=== PATIENT | female | born 1975 | race Caucasian/White ===

== ENCOUNTER 2020-03-23 07:51 | Outpatient (CLI) | payer BC, SELFPAY ==
[2020-03-23 08:22] LABS: Basophils Absolute Auto 0.1 K/mm3 (0.0-0.1); Basophils Percent Auto 0.9 % (0.2-1.2); Eosinophils Absolute Auto 0.2 K/mm3 (0-0.3); Eosinophils Percent Auto 3.7 % (0-4.4); Hematocrit 41.4 % (37.0-47.0); Hemoglobin 14.5 g/dL (12.0-15.0); Immature Granulocyte Absolute 0.02 K/mm3 (0.00-0.031); Immature Granulocyte Percent A 0.4 % (0-0.5); Lymphocytes Absolute Auto 1.65 K/mm3 (0.9-3.2); Lymphocytes Percent Auto 30.2 % (18.3-44.2); Mean Corpuscular Hemoglobin 32.7 pg (26-34); Mean Corpuscular Volume 93.2 fl (80-100); Mean Platelet Volume 9.2 fl (7.4-10.4); Monocytes Absolute Auto 0.4 K/mm3 (0.1-0.6); Monocytes Percent Auto 6.8 % (2.6-8.5); Neutrophils Absolute Auto 3.2 K/mm3 (1.3-6.7); Platelet Count Result 265 k/mm3 (150-375); Red Blood Count 4.44 M/mm3 (4.2-5.4); Red Cell Distribution Width 11.7 % (11.5-14.5); White Blood Count 5.5 K/mm3 (4.5-10.0)
[2020-03-23 08:46] LABS: Alanine Aminotransferase 25 U/L (4-35); Albumin Level 4.2 g/dL (3.5-5.1); Alkaline Phosphatase 77 U/L (38-126); Anion Gap 7 mmol/L (8-16); Aspartate Amino Transferase 29 U/L (14-36); Bilirubin,Total 0.4 mg/dL (0.2-1.3); Blood Urea Nitrogen 8 mg/dL (7-17); Calcium 8.8 mg/dL (8.4-10.2); Carbon Dioxide 25 mmol/L (22-30); Chloride 104 mmol/L (98-107); Cholesterol 175 mg/dL (0-200); Estimated Glomerular Filt Rate > 60; Glucose 88 mg/dL (65-105); HDL Direct 51 mg/dL; Potassium 4.2 mmol/L (3.4-5.0); Sodium 136 mmol/L (137-145); Triglycerides 122 mg/dL (<150)
[2020-03-23 08:50] LABS: LDL Cholesterol Direct 107 mg/dL
== END 2020-03-23 07:52 | disposition home or self-care (01) ==
PROVIDERS: PCP Internal Medicine; Visit Provider Internal Medicine
DX: Z00.00 Encounter for general adult medical examination without abnormal findings (principal)
CPT/HCPCS: 36415; 80053; 80061; 84443; 85025

== ENCOUNTER 2020-07-11 12:21 | Day surgery (SDC) | payer BC, SELFPAY ==
[2020-07-11] VITALS (12 sets, daily range): BP systolic 98–138; BP diastolic 63–89; PULSE 63–84; RESP 12–19; TEMP 36.1–36.8; O2SAT 96–100
--- NOTE | ~2020-07-11 | CT_ITS ---
EXAMINATION: CT abdomen pelvis w con DATE: 07/11/2020 13:40 INDICATION: Right lower quadrant abdominal pain TECHNIQUE: Computed tomography (CT) of the abdomen and pelvis was performed with 100 cc Omnipaque 350 intravenous contrast. The dose-length product was 655.16 mGy-cm. Automated exposure control and iter ative reconstruction technique were employed. COMPARISON: CT dated 04/12/2015 FINDINGS: Lung bases are unremarkable. Heart size normal. No significant pleural or pericardial effus ion. Calcified granuloma right lower lobe. There are cholecystectomy clips. No significant vascular a bnormality. No lymphadenopathy. The liver, spleen, pancreas, adrenal glands and right kidney are unremarkable. There are small subcen timeter hypodensities of the left kidney, most likely benign cysts. Nonobstructive bowel gas pattern. The appendix is thickened and enhancing with mild surrounding inflammation, consistent with acute ap pendicitis. No evidence for perforation or abscess. There are follicular changes in the right ovary. No abnormal pelvic masses or fluid collections. No acute osseous abnormality. IMPRESSION: 1. Acute uncomplicated appendicitis. Reviewed, dictated and finalized at location A. 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
--- NOTE | 2020-07-11 12:38 | ED.ABDPAIN ---
HPI - Abdominal Pain General Chief Complaint: Abdominal Pain Stated Complaint: Right Side ABD Pain Time Seen by Provider: 07/11/20 12:38 Source: patient Mode of arrival: ambulatory Limitations: no limitations History of Present Illness HPI narrative: Patient is a 45-year-old female who presents for evaluation of right-sided abdominal pain. Patient states that yesterday she began to feel unwell, with general malaise, nausea and vomiting. Patient states that she initially had central abdominal pain that has now migrated to her right lower quadrant, described as dull, aching in nature. Patient denies fever or chills. No vomiting today. Last oral intake at noon and did not exacerbate or change the pain. Patient had some slightly loose stools yesterday but denied any bright red blood or melena. Patient with history of laparoscopic abdominal surgery for ovarian cyst, as well as cholecystectomy. Patient denies dysuria or hematuria. Last oral intake noon today. Related Data Home Medications Medication Instructions Recorded Confirmed butalbital 50 mg-acetaminophen 325 1 cap PO Q4H PRN 07/26/19 mg-caffeine 40 mg-codeine 30 mg cap cetirizine 10 mg tablet 10 mg PO DAILY 07/26/19 cyclobenzaprine 10 mg tablet 10 mg PO .hs PRN tablet 07/26/19 norethindrone acetate 1 mg-ethinyl 1 tablet PO DAILY 07/26/19 estradiol 20 mcg tablet Allergies Allergy/AdvReac Type Severity Reaction Status Date / Time codeine Allergy Mild keeps me Verified 07/11/20 12:27 up Review of Systems Review of Systems: Narrative: CONSTITUTIONAL: Denies fever, chills, or sweats. EYES: Denies visual changes, redness, or discharge. ENT: Denies rhinorrhea, congestion, sore throat, or otalgia. CARDIOVASCULAR: Denies chest pain, palpitations, or edema. RESPIRATORY: Denies cough or dyspnea. GASTROINTESTINAL: Reports right-sided abdominal pain, nausea and vomiting has resolved, diarrhea resolved as well GENITOURINARY: Denies dysuria or hematuria. SKIN: Denies rash or itching. MUSCULOSKELETAL: Denies back pain, joint pain, or myalgia. NEUROLOGIC: Denies headache, numbness, or weakness. [facility] Past Medical History Medical History (Updated 07/11/20 @ 14:00 by Melisa Monte MD) BMI 31.0-31.9,adult Depression Low serum vitamin B12 Other allergic rhinitis Family History Family History Father Family history of elevated blood lipids Mother Patient's mother is in good health Sibling Patient's brother is in good health Social History Social History Smoking status: Former smoker Second hand tobacco smoke exposure: No Smoking end date: 07/28/99 Alcohol intake: current Substance use: never Exam Narrative: Exam Narrative: GENERAL: Awake, alert, conversant HEAD: Normocephalic, atraumatic. EYES: PERRLA and EOMI. ENT: Nares clear, no rhinorrhea or epistaxis. Mucous membranes moist. NECK: Supple. CHEST: No respiratory distress, breathing even and non labored HEART: Regular rate, sinus rhythm ABDOMEN:Non distended, focal right lower quadrant tenderness, no guarding, positive rebound, nonrigid, positive Rovsing sign EXTREMITIES: Normal range of motion. No edema. SKIN: Warm, dry, no rash. NEURO:No focal deficits. Alert and oriented x3 Course Vital Signs Vital signs: Vital Signs Temperature 36.1 C L 07/11/20 12:25 Pulse Rate 73 07/11/20 12:25 Respiratory Rate 18 07/11/20 12:25 Blood Pressure 138/87 07/11/20 12:25 Pulse Oximetry 100 07/11/20 12:25 Temperature 36.8 C 07/11/20 12:37 Pulse Rate 66 07/11/20 14:00 Respiratory Rate 16 07/11/20 14:00 Blood Pressure 98/79 L 07/11/20 14:00 Pulse Oximetry 99 07/11/20 14:00 MDM - Abdominal Pain MDM Narrative Medical decision making narrative: Patient presented for evaluation of right lower quadrant abdominal pain. At the time of assessment, ABCchris hay
[2020-07-11 13:02] LABS: Add Urine Microscopic? YES; Appearance Urine Clear (Clear); Bacteria Urine Trace /hpf; Basophils Percent Auto 0.4 % (0.2-1.2); Bilirubin Urine Negative (Negative); Blood Urine 1+ (Negative); Color Urine Straw (Yellow); Eosinophils Absolute Auto 0.1 K/mm3 (0-0.3); Eosinophils Percent Auto 1.3 % (0-4.4); Glucose Urine UA Negative (Negative); Hematocrit 40.2 % (37.0-47.0); Hemoglobin 14.3 g/dL (12.0-15.0); Immature Granulocyte Absolute 0.02 K/mm3 (0.00-0.031); Immature Granulocyte Percent A 0.3 % (0-0.5); Ketones Urine Negative (Negative); Leukocyte Esterase Ur Trace LEU/UL (Negative); Lymphocytes Absolute Auto 1.89 K/mm3 (0.9-3.2); Lymphocytes Percent Auto 26.4 % (18.3-44.2); Mean Corpuscular HGB Conc 35.6 g/dl (32-36); Mean Corpuscular Hemoglobin 32.7 pg (26-34); Mean Platelet Volume 9.2 fl (7.4-10.4); Monocytes Absolute Auto 0.4 K/mm3 (0.1-0.6); Monocytes Percent Auto 5.6 % (2.6-8.5); Mucus Urine Rare /lpf; Neutrophils Absolute Auto 4.7 K/mm3 (1.3-6.7); Nitrate Urine Negative (Negative); Platelet Count Result 276 k/mm3 (150-375); Protein Urine Negative (Negative); RBC Urine 0-2 /hpf (0-2); Red Blood Count 4.37 M/mm3 (4.2-5.4); Red Cell Distribution Width 11.5 % (11.5-14.5); Squamous Epithelial Cell Urine Many /hpf (Few); Urobilinogen Urine Negative mg/dL (<2.0); WBC Urine 0-3 /hpf; White Blood Count 7.2 K/mm3 (4.5-10.0)
[2020-07-11 13:05] LABS: Specific Grav Ur 1.004 (1.001-1.035)
[2020-07-11 13:09] LABS: Alanine Aminotransferase 30 U/L (4-35); Albumin Level 4.2 g/dL (3.5-5.1); Alkaline Phosphatase 69 U/L (38-126); Anion Gap 6 mmol/L (8-16); Aspartate Amino Transferase 29 U/L (14-36); Bilirubin,Total 0.3 mg/dL (0.2-1.3); Blood Urea Nitrogen 5 mg/dL (7-17); Calcium 8.8 mg/dL (8.4-10.2); Carbon Dioxide 27 mmol/L (22-30); Chloride 103 mmol/L (98-107); Estimated CRCL calculation 84 ml/min; Estimated Glomerular Filt Rate > 60; Glucose 124 mg/dL (65-105); Lipase 99 U/L (23-300); Potassium 3.7 mmol/L (3.4-5.0); Sodium 136 mmol/L (137-145)
--- NOTE | 2020-07-11 14:50 | PC.NURSE ---
DR. QUARLES AT BEDSIDE AT THIS TIME.
--- NOTE | 2020-07-11 15:12 | PM.IMHP ---
H&P: HPI History of Present Illness Date/Time: 07/11/20 15:12 Cheif Complaint: Right lower quadrant abdominal pain Narrative: Teagan Oneill is a 45 year old caucasion female patient who presents for evaluation of right-sided abdominal pain. Patient states that yesterday she began to feel unwell noticing the mid abdominal pain when she woke up in the morning, with general malaise, nausea and vomiting. Patient states that she initially had central abdominal pain that has now migrated to her right lower quadrant. The pain is now described as dull, aching in nature. Patient denies fever or chills. No vomiting today. She did have both thumb Ng and some diarrhea during the daytime yesterday. She was able to eat some supper last night before she went to bed. Last oral intake at noon and did not exacerbate or change the pain. Patient had some slightly loose stools yesterday but denied any bright red blood or melena. Patient with history of laparoscopic abdominal surgery for ovarian cysts, as well as cholecystectomy. Patient denies dysuria or hematuria. Last oral intake noon today(she had a rope wrist be sandwich with some ice tea). Review of Systems Constitutional: Constitutional: Reports no additional constitutional complaints, Reports fatigue and Denies malaise Eyes: Eyes: Denies change in vision and Denies loss of vision ENT: Reports Normal hearing present, Denies change in voice, Denies dizziness, Denies hoarseness and Denies sore throat Cardiovascular: Cardiovascular: Denies chest pain, Denies leg edema and Denies dyspnea Respiratory: Respiratory: Denies cough, Denies dyspnea and Denies wheezing Gastrointestinal: Gastrointestinal: Denies hematochezia, Denies change in bowel habits and Denies heartburn Comments: History of previous laparoscopic cholecystectomy about 8 years ago for gallstones. Also at age 21 had a laparoscopy with some ovarian surgery due to recurrent cysts Genitourinary: Genitourinary: Denies urinary frequency and Denies urinary incontinence Comments: Occasional urinary tract infections. However, today or recently no frequency of urination or burning with urination. Neurologic: Reports Normal hearing present, Denies confusion, Denies dizziness, Denies loss of vision, Denies memory loss and Denies seizure-like activity Psychiatric: Psychiatric: Denies confusion, Reports depression (On medication) and Denies memory loss Comments: History of mild depression taking some antidepressant regularly. Endocrine: Endocrine: Denies cold intolerance and Reports fatigue Hematologic/Lymphatic: Hematologic/Lymphatic: Denies easy bleeding and Denies easy bruising Allergic/Immunologic: Allergic/Immunologic: Denies wheezing PMFSH Past Medical History Medical History BMI 31.0-31.9,adult Depression Low serum vitamin B12 Other allergic rhinitis Family History Family History Father Family history of elevated blood lipids Mother Patient's mother is in good health Sibling Patient's brother is in good health Social History Social History Smoking status: Former smoker Second hand tobacco smoke exposure: No Smoking end date: 07/28/99 Alcohol intake: current Substance use: never Comments Alcohol intake is fairly minimal about half a beer per week. Meds Home Medications and Allergies Home Medications Medication Instructions Recorded Confirmed Type butalbital 50 mg-acetaminophen 325 1 cap PO Q4H PRN 07/26/19 History mg-caffeine 40 mg-codeine 30 mg cap cetirizine 10 mg tablet 10 mg PO DAILY 07/26/19 History cyclobenzaprine 10 mg tablet 10 mg PO .hs PRN tablet 07/26/19 History norethindrone acetate 1 mg-ethinyl 1 tablet PO DAILY 07/26/19 History estradiol 20 mcg tablet azelastine 0.15 % (205.5 mcg) 2 spray NASAL BID PRN #30 ml
[2020-07-11] MEDS: SODIUM CHLORIDE 0.9% IV 1,000 ML 150 ML IV CONT (15:37)
[2020-07-11] MEDS: LACTATED RINGERS 1,000 ML 30 ML IV CONT ×2 (16:50→20:00)
--- NOTE | 2020-07-11 17:24 | WPDANESEPPF ---
Anes - Initial Pre Proc Eval Procedure: Operation Date: 07/11/20 17:30 Proposed Procedures p Laparoscopic Appendectomy,Possible Open - Stephen Mari MD Date/Time: 07/11/20 17:24 Surgeon: Stephen Mari MD Pre Op Diagnosis: Right Side ABD Pain Patient Data Age: 45 Gender: F Height: 1.65 m Weight: 86.1 kg Last Vital Signs Temp 36.4 C 07/11/20 16:49 Pulse 77 07/11/20 16:49 Resp 16 07/11/20 16:49 BP 111/69 07/11/20 16:49 Pulse Ox 96 07/11/20 16:49 Allergies Allergy/AdvReac Type Severity Reaction Status Date / Time codeine Allergy Mild keeps me Verified 07/11/20 12:27 up Home Medications Medication Instructions Recorded Confirmed Type butalbital 50 mg-acetaminophen 325 1 cap PO Q4H PRN 07/26/19 History mg-caffeine 40 mg-codeine 30 mg cap cetirizine 10 mg tablet 10 mg PO DAILY 07/26/19 History cyclobenzaprine 10 mg tablet 10 mg PO .hs PRN tablet 07/26/19 History norethindrone acetate 1 mg-ethinyl 1 tablet PO DAILY 07/26/19 History estradiol 20 mcg tablet azelastine 0.15 % (205.5 mcg) 2 spray NASAL BID PRN #30 ml 10/27/19 Rx nasal spray citalopram 10 mg tablet 10 mg PO DAILY #90 tablet 05/30/20 Rx Laboratory Tests 07/11/20 07/11/20 07/11/20 12:47 12:47 12:47 WBC 7.2 K/mm3 K/mm3 (4.5-10.0) RBC 4.37 M/mm3 M/mm3 (4.2-5.4) Hgb 14.3 g/dL g/dL (12.0-15.0) Hct 40.2 % % (37.0-47.0) MCV 92.0 fl fl (80-100) MCH 32.7 pg pg (26-34) MCHC 35.6 g/dl g/dl (32-36) RDW 11.5 % % (11.5-14.5) Plt Count 276 k/mm3 k/mm3 (150-375) MPV 9.2 fl fl (7.4-10.4) Immature Gran % (Auto) 0.3 % % (0-0.5) Neut % (Auto) 66.0 % % (45.5-73.1) Lymph % (Auto) 26.4 % % (18.3-44.2) Upton % (Auto) 5.6 % % (2.6-8.5) Eos % (Auto) 1.3 % % (0-4.4) Baso % (Auto) 0.4 % % (0.2-1.2) Lymph # (Auto) 1.89 K/mm3 K/mm3 (0.9-3.2) Upton # (Auto) 0.4 K/mm3 K/mm3 (0.1-0.6) Eos # (Auto) 0.1 K/mm3 K/mm3 (0-0.3) Baso # (Auto) 0.0 K/mm3 K/mm3 (0.0-0.1) Abs Immat Gran (auto) 0.02 K/mm3 K/mm3 (0.00-0.031) Absolute Neuts (auto) 4.7 K/mm3 K/mm3 (1.3-6.7) Absolute Nucleated RBC 0.0 K/mm3 K/mm3 (0.0-0.012) Nucleated RBC % 0.0 % % (0.0-0.2) Sodium 136 mmol/L L mmol/L (137-145) Potassium 3.7 mmol/L mmol/L (3.4-5.0) Chloride 103 mmol/L mmol/L (98-107) Carbon Dioxide 27 mmol/L mmol/L (22-30) Anion Gap 6 mmol/L L mmol/L (8-16) BUN 5 mg/dL L mg/dL (7-17) Creatinine 0.80 mg/dL mg/dL (0.7-1.0) Estim Creat Clear Calc 84 ml/min ml/min Estimated GFR > 60 (59 - ) Glucose 124 mg/dL H mg/dL (65-105) Calcium 8.8 mg/dL mg/dL (8.4-10.2) Total Bilirubin 0.3 mg/dL mg/dL (0.2-1.3) AST 29 U/L U/L (14-36) ALT 30 U/L U/L (4-35) Alkaline Phosphatase 69 U/L U/L (38-126) Total Protein 7.0 g/dL g/dL (6.3-8.2) Albumin 4.2 g/dL g/dL (3.5-5.1) Lipase 99 U/L U/L (23-300) Urine Color Straw (Yellow) Urine Appearance Clear (Clear) Urine pH 6.0 (5.0-9.0) Ur Specific Neville 1.004 (1.001-1.035) Urine Protein Negative mg/dL mg/dL (Negative) Urine Glucose (UA) Negative mg/dL mg/dL (Negative) Urine Ketones Negative mg/dL mg/dL (Negative) Ur Blood (Man) 1+ H (Negative) Urine Nitrate Negative (Negative) Urine Bilirubin Negative (Negative) Urine Urobilinogen Negative mg/dL mg/dL (<2.0) Leukocyte Esterase Rfl Trace DAVIS/UL H DAVIS/UL (Negative) Urine RBC 0-2 /hpf /hpf (0-2) Urine WBC 0-3 /hpf /hpf Ur Sq
--- NOTE | 2020-07-11 17:59 | WPDHPUPDATE1 ---
History and Physical Update Update Date/Time: 07/11/20 17:59 History and Physical has been reviewed, including an updated exam of the patient. There are NO changes in the patient's condition. Risks, benefits, and alternatives have been discussed and questions answered. Patient agrees to proceed with procedure.
[2020-07-11] MEDS: BUPIVACAINE/EPINEPHRINE 0.25% 10 ML VIAL 30 ML INFILTRATE (19:20)
--- NOTE | 2020-07-11 20:09 | PM.PROC ---
Procedure Note - Detailed Date of procedure: 07/11/20 Pre-op diagnosis: Right Side ABD Pain Acute uncomplicated appendicitis Post-op diagnosis: same Procedure performed: Laparoscopic Appendectomy Description of procedure: The patient was seen again in the Holding Room. The risks, benefits, complications, treatment options, and expected outcomes were discussed with the patient and/or family. The possibilities of reaction to medication, pulmonary aspiration, perforation of viscus, bleeding, recurrent infection, finding a normal appendix, the need for additional procedures, failure to diagnose a condition, and creating a complication requiring transfusion or operation were discussed. There was concurrence with the proposed plan and informed consent was obtained. The site of surgery was properly noted/marked. The patient was taken to Operating Room, and a time out was preformed which identified this as the proper patient, and the procedure verified as laparoscopic appendectomy, possible open. The patient was placed in the supine position and general anesthesia was induced, along with placement of orogastric tube, SCD hose, and a Jackson catheter. The abdomen was prepped and draped in a sterile fashion. Because the patient had had previous surgeries the Zapata cannula technique was utilized. To do this I made a incision in the umbilical area and carried this down to the midline fascia. Under direct vision the midline fascia was incised and the peritoneum entered under direct vision after placing 2 sutures of 0 Vicryl in the fascia on either side of midline. The Zapata cannula was then slid into place into the peritoneum under direct vision. The pneumoperitoneum was then established to steady pressure of 15 mm Hg. A 5 mm laparoscopic port was placed through a transverse suprapubic incision. An additional 5 mm cannula was then placed in the left lower quadrant of the abdomen at a level half way between the umbilicus and pubic symphysis under direct vision. A careful evaluation of the entire abdomen was carried out. The patient was placed in Trendelenburg and left lateral decubitus position. The small intestines were retracted in the cephalad and left lateral direction away from the pelvis and right lower quadrant. The patient was found to have an enlarged and mildly inflamed appendix that was extending into the right side of the adomen with a veil of adhesions across it'sproximal 1/2. There was no evidence of perforation. The appendix was carefully dissected. Once it was free a 45 mm ethicon endogastroentestinal stapler with a vascular load was placed across the mesoappendix. This was fired and hemostasis was checked along the staple line and appeared to be adequate. For this patient, this divided the entire mesoappendix and we were able to proceed immediately to stapling off the appendix at it's junction with the cecum. The appendix was then divided at its base using the same 45 mm stapler with a 3.5 mm bowel wall load. Minimal appendiceal stump was left in place. There was no evidence of bleeding, leakage, or complication after division of the appendix at its junction with the cecum.. The appendix was then placed in an endobag which had been brought through the 12 mm umbilical port site. The appendix and the bag were then extracted through this larger port site in the suprapubic position. The umbilical port site was closed using a #1 Polysorb suture passed with a Adrian-Le cone and needle suture passer and then this was re-inforced at a more superficially with a figure of 8 O Vicryl using a standard needle lima externally through the incision at the level of the fascia. The 2 stay sutures that were placed at the beginning of the procedure at the umbilical level were also tied together to help approximate the fascia under the umbilical skin. The trocar site skin wounds were then closed using 4-0 undyed Monocryl and surgical glue. Instrument, sponge, and needle
[2020-07-11] MEDS: HYDROcodone/acetaminophen (*CRX) 5-325 MG TABLET 1 TAB PO (20:55)
--- NOTE | 2020-07-11 21:05 | SUR.PHASEII ---
Walked to bathroom without issues. Voided also without difficulty.
== END 2020-07-11 21:34 | disposition home or self-care (01) ==
LOC: ANHED 15:08 → ANHSURGERY 15:59
PROVIDERS: Emergency Provider Emergency Medicine; PCP Internal Medicine; Visit Provider Surgery
PROC: 0DTJ4ZZ Resection of Appendix, Percutaneous Endoscopic Approach (ICD-10-PCS; CPT 44970; principal; 2020-07-11 17:30)
DX: K35.32 Acute appendicitis with perforation, localized peritonitis, and gangrene, without abscess (principal); F32.9 Major depressive disorder, single episode, unspecified; J30.89 Other allergic rhinitis; E53.8 Deficiency of other specified B group vitamins; Z87.891 Personal history of nicotine dependence
CPT/HCPCS: 44970; 36415; 74177; 80053; 81001; 81025; 83690; 85025; 88304; 96365; 96366; 99285; A9270; J0330; J1100; J2001; J2250; J2405; J2543; J2704; J2710; J3010; J7030; J7120; Q9967

== ENCOUNTER 2020-08-19 06:45 | Outpatient (NON) | payer BC, SELFPAY ==
[2020-08-20 17:16] LABS: SARS-CoV-2 RNA PCR Negative
== END 2020-08-19 06:46 ==
LOC: ANHCOVIDDT 06:45
PROVIDERS: PCP Internal Medicine; Visit Provider Physician Assistant
DX: R68.89 Other general symptoms and signs (principal); Z20.822 Contact with and (suspected) exposure to COVID-19
CPT/HCPCS: C9803; U0003; U0005

== ENCOUNTER 2020-12-28 14:50 | Outpatient (CLI) | payer BC, SELFPAY ==
--- NOTE | ~2020-12-28 | US_ITS ---
US axilla LT 12/28/2020 15:10 Indication: Palpable left axillary abnormality Procedure: High-resolution ultrasound of the left axilla Comparison: No prior studies for comparison. Findings: There are normal left axillary lymph nodes measuring up to 1 cm maximum dimension which ret ain normal fatty hilum. No suspicious masses are identified in the left axilla to suggest malignancy. Impression: 1: Benign-appearing left axillary lymph nodes. BI-RADS CATEGORY 2 - BENIGN FINDINGS Reviewed, dictated and finalized at location A. Impression: 1: Benign-appearing left axillary lymph nodes. BI-RADS CATEGORY 2 - BENIGN FINDINGS
== END 2020-12-28 14:51 | disposition home or self-care (01) ==
LOC: ANHIMG 14:51
PROVIDERS: PCP Internal Medicine; Visit Provider Internal Medicine
DX: M79.89 Other specified soft tissue disorders (principal)
CPT/HCPCS: 76882

== ENCOUNTER → 2021-02-12 13:17 | Outpatient (CLI) | payer BC, SELFPAY ==
--- NOTE | ~2021-02-12 | MM_ITS ---
EXAMINATION: MM screening jesus BI w dottie HISTORY: Screening TECHNIQUE: Craniocaudal and mediolateral oblique 3-D tomosynthesis images were obtained and synthetic 2-D images were generated. CAD analysis was submitted and interpreted. COMPARISON: Comparison to multiple prior studies sequentially, with oldest reviewed study dated 02/2017. BREAST PARENCHYMAL COMPOSITION: The breasts are heterogeneously dense, which may obscure small masses . FINDINGS: There is no evidence of suspicious mass, calcification, or architectural distortion to sugg est malignancy in either breast. There has been no suspicious interval change. IMPRESSION: 1. No mammographic evidence of malignancy. 2. Recommend routine screening mammography in one year. BI-RADS Category 1: Negative Reviewed, dictated and finalized at location A.
== END ==
PROVIDERS: Visit Provider Obstetrics & Gynecology
DX: Z12.31 Encounter for screening mammogram for malignant neoplasm of breast (principal)
CPT/HCPCS: 77063; 77067

== ENCOUNTER 2021-07-11 07:18 | Outpatient (CLI) | payer BC, SELFPAY ==
[2021-07-11 07:34] LABS: Basophils Absolute Auto 0.1 K/mm3 (0.0-0.1); Basophils Percent Auto 1.1 % (0.2-1.2); Eosinophils Absolute Auto 0.2 K/mm3 (0-0.3); Eosinophils Percent Auto 3.3 % (0-4.4); Hematocrit 43.2 % (37.0-47.0); Hemoglobin 14.9 g/dL (12.0-15.0); Immature Granulocyte Absolute 0.01 K/mm3 (0.00-0.031); Immature Granulocyte Percent A 0.2 % (0-0.5); Lymphocytes Absolute Auto 1.93 K/mm3 (0.9-3.2); Lymphocytes Percent Auto 30.4 % (18.3-44.2); Mean Corpuscular HGB Conc 34.5 g/dl (32-36); Mean Corpuscular Hemoglobin 33.3 pg (26-34); Mean Corpuscular Volume 96.4 fl (80-100); Mean Platelet Volume 8.7 fl (7.4-10.4); Monocytes Absolute Auto 0.6 K/mm3 (0.1-0.6); Monocytes Percent Auto 9.1 % (2.6-8.5); Neutrophils Absolute Auto 3.5 K/mm3 (1.3-6.7); Neutrophils Percent Auto 55.9 % (45.5-73.1); Platelet Count Result 266 k/mm3 (150-375); Red Blood Count 4.48 M/mm3 (4.2-5.4); Red Cell Distribution Width 11.8 % (11.5-14.5); White Blood Count 6.3 K/mm3 (4.5-10.0)
[2021-07-11 07:46] LABS: Hemoglobin A1C 5.2 % (<5.7)
[2021-07-11 08:37] LABS: Alanine Aminotransferase 27 U/L (4-35); Albumin Level 4.3 g/dL (3.5-5.1); Alkaline Phosphatase 93 U/L (38-126); Anion Gap 7 mmol/L (8-16); Aspartate Amino Transferase 29 U/L (14-36); Bilirubin,Total 0.5 mg/dL (0.2-1.3); Blood Urea Nitrogen 7 mg/dL (7-17); Calcium 8.7 mg/dL (8.4-10.2); Carbon Dioxide 27 mmol/L (22-30); Chloride 104 mmol/L (98-107); Cholesterol 178 mg/dL (0-200); Estimated Glomerular Filt Rate > 60; Glucose 94 mg/dL (65-110); HDL Direct 53 mg/dL; Potassium 4.5 mmol/L (3.4-5.0); Sodium 138 mmol/L (137-145); Triglycerides 118 mg/dL (<150)
[2021-07-11 08:49] LABS: LDL Cholesterol Direct 96 mg/dL
[2021-07-14 11:19] LABS: Folic Acid 18.5 ng/mL (2.76->20)
== END 2021-07-11 07:19 | disposition home or self-care (01) ==
PROVIDERS: PCP Internal Medicine; Visit Provider Internal Medicine
DX: Z00.00 Encounter for general adult medical examination without abnormal findings (principal)
CPT/HCPCS: 36415; 80053; 80061; 82607; 82746; 83036; 84443; 85025

== ENCOUNTER 2022-01-06 12:17 | Emergency (ER) | payer BC, SELFPAY ==
[2022-01-06 12:31] VITALS: BP 102/63; PULSE 72; RESP 18; TEMP 37; O2SAT 98
--- NOTE | 2022-01-06 12:37 | ED.GENADULT ---
HPI - General Adult General Chief complaint: Wound/Laceration Stated complaint: laceration lt hand Source: patient Mode of arrival: ambulatory Limitations: no limitations History of Present Illness HPI narrative: Patient presents for evaluation of laceration to left hand. 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 She has some mild pain in the affected area. No loss of ROM. She describes the pain as pressure and tingling . She is left hand dominant. She is not diabetic. She does not smoke. Date of last tetanus about eight years ago. No additional complaints or concerns. Related Data Allergies Allergy/AdvReac Type Severity Reaction Status Date / Time codeine Allergy Mild keeps me Verified 01/06/22 12:38 up Review of Systems Review of Systems: CONSTITUTIONAL: Denies fever, chills, or sweats. EYES: Denies visual changes, redness, or discharge. ENT: Denies rhinorrhea, congestion, sore throat, or otalgia. CARDIOVASCULAR: Denies chest pain, palpitations, or edema. RESPIRATORY: Denies cough or dyspnea. GASTROINTESTINAL: Denies abdominal pain, nausea, vomiting, or diarrhea. GENITOURINARY: Denies dysuria or hematuria. SKIN: Reports laceration to left hand MUSCULOSKELETAL: Reports left hand pain. Denies back pain, joint pain NEUROLOGIC: Reports tingling near left hand laceration site. Denies headache, numbness, dizziness, or weakness. PSYCHIATRIC: Denies anxiety or depression. [facility] Past Medical History Medical History Abnormal Pap smear of cervix 08/07/10 ascus, neg hpv; 07/07/2009 ASCUS;06/21/08 LGSIL +HPV; 03/28/2006 ASCUS + HPV Anxiety BMI 31.0-31.9,adult Chlamydia Depression (Unknown) Encounter for IUD insertion 06/04/05 Mirena insertion Encounter for IUD removal 07/07/07 Mirena removal--irregular bleeding GERD (gastroesophageal reflux disease) HSV-1 (herpes simplex virus 1) infection Low serum vitamin B12 Migraine Other allergic rhinitis (Unknown) Screening mammogram, encounter for Surgical History Surgical History History of cholecystectomy 2010 History of colposcopy with cervical biopsy 05/06/06 EMB--benign 07/14/08 insufficient tissue volume History of endoscopy 2014 endoscopy of stomach--GERD History of laparoscopic appendectomy 07/11/2020 History of laparoscopy 03/03/02 dx lscope, adhesiolysis History of ovarian cystectomy 1995 ovarian cyst removed History of tonsillectomy 1994 Family History Family History Father Family history of elevated blood lipids Hypertension Mother Patient's mother is in good health Sibling Patient's brother is in good health Social History Social History Smoking status: Former smoker Second hand tobacco smoke exposure: No Smoking end date: 07/28/99 Alcohol intake: former Alcohol use details: rarely Substance use: never Substance use type: does not use Additional living arrangements comments: spouse Gender identity (if verbalized by the patient): Female Sexual Orientation (if Verbalized by the Patient): Straight or Heterosexual Exam Narrative: GENERAL: Well-appearing, well-nourished, and in no acute distress. HEAD: Normocephalic, atraumatic. EYES: PERRLA and EOMI. ENT: Nares clear, no rhinorrhea or epistaxis. Mucous membranes moist. Oropharynx without tonsillar hypertrophy exudate or other lesions. Bilateral TMs pearly mccoy nonbulging NECK: Supple. No adenopathy or masses. No carotid bruits or JVD CHEST: Clear to auscultation. No respiratory distress. No wheezes rales or rhonchi HEART: Regular rate and rhythm. No murmur heard. Normal peripheral pulses. ABDOMEN: Soft, nontender, nondistended, normal active bowel sounds. EXTREMITIES: Normal range of britney
[2022-01-06] MEDS: TETANUS,DIPHTHERIA,AC PERTUSSIS ADULT (0.5 ML) BOOSTRIX IM (13:05)
== END 2022-01-06 13:08 | disposition home or self-care (01) ==
PROVIDERS: Emergency Provider Nurse Practitioner; PCP Internal Medicine
DX: S61.412A Laceration without foreign body of left hand, initial encounter (principal); W26.0XXA Contact with knife, initial encounter; Z23 Encounter for immunization; Z87.891 Personal history of nicotine dependence; K21.9 Gastro-esophageal reflux disease without esophagitis
CPT/HCPCS: 12001; 90471; 90715; 99212; G0463

== ENCOUNTER → 2022-05-29 13:32 | Outpatient (CLI) | payer BC, SELFPAY ==
--- NOTE | ~2022-05-29 | MM_ITS ---
EXAMINATION: MM screening jesus BI w dottie HISTORY: Screening TECHNIQUE: Craniocaudal and mediolateral oblique 3-D tomosynthesis images were obtained and synthetic 2-D images were generated. CAD analysis was submitted and interpreted. COMPARISON: Comparison to multiple prior studies sequentially, with oldest reviewed study dated 02/2017. BREAST PARENCHYMAL COMPOSITION: The breasts are heterogeneously dense, which may obscure small masses . FINDINGS: There is no evidence of suspicious mass, calcification, or architectural distortion to sugg est malignancy in either breast. There has been no suspicious interval change. IMPRESSION: 1. No mammographic evidence of malignancy. 2. Recommend routine screening mammography in one year. BI-RADS Category 1: Negative Reviewed, dictated and finalized at location A.
== END ==
PROVIDERS: PCP Internal Medicine; Visit Provider Obstetrics & Gynecology
DX: Z12.31 Encounter for screening mammogram for malignant neoplasm of breast (principal)
CPT/HCPCS: 77063; 77067

== ENCOUNTER 2022-08-16 01:54 | Day surgery (SDC) | payer BC, SELFPAY ==
[2022-08-05 11:54] VITALS: BMI 33.3
[2022-08-16 09:39] VITALS: BP 114/63; PULSE 68; RESP 18; TEMP 36.2; O2SAT 97
[2022-08-16] MEDS: LACTATED RINGERS 1,000 ML 150 ML IV CONT (09:54)
--- NOTE | 2022-08-16 10:23 | WPDANESEPPF ---
Anes - Initial Pre Proc Eval Procedure: Operation Date: 08/16/22 11:00 Proposed Procedures p Screening Colonoscopy - Chuy Gilliland MD Date/Time: 08/16/22 10:23 Surgeon: Chuy Gilliland MD Pre Op Diagnosis: neoplasm screening Patient Data Age: 47 Gender: F Height: 1.65 m Weight: 95.2 kg Last Vital Signs Temp 97.2 F L 08/16/22 09:39 Pulse 68 08/16/22 09:39 Resp 18 08/16/22 09:39 BP 114/63 08/16/22 09:39 Pulse Ox 97 08/16/22 09:39 O2 Del Method Room Air 08/16/22 09:39 Allergies Allergy/AdvReac Type Severity Reaction Status Date / Time codeine Allergy Mild keeps me Verified 08/16/22 09:38 up Home Medications Medication Instructions Recorded Confirmed Type norethindrone acetate 1 mg-ethinyl 1 tablet PO DAILY #63 tabs 01/15/22 08/05/22 Rx estradiol 20 mcg tablet (Junel) citalopram 10 mg tablet (Celexa) 10 mg PO DAILY #90 tabs 05/09/22 08/05/22 Rx Patient hx anesthesia problems: none Family hx anesthesia problems: none Results Review: All pre-operative results and documents have been reviewed as part of the pre-operative evaluation. [facility] Past Medical History Medical History Abnormal Pap smear of cervix 08/07/10 ascus, neg hpv; 07/07/2009 ASCUS;06/21/08 LGSIL +HPV; 03/28/2006 ASCUS + HPV Anxiety BMI 31.0-31.9,adult Chlamydia Depression (Unknown) Encounter for IUD insertion 06/04/05 Mirena insertion Encounter for IUD removal 07/07/07 Mirena removal--irregular bleeding GERD (gastroesophageal reflux disease) HSV-1 (herpes simplex virus 1) infection Low serum vitamin B12 Migraine Other allergic rhinitis (Unknown) Screening mammogram, encounter for Surgical History Surgical History History of cholecystectomy 2010 History of colposcopy with cervical biopsy 05/06/06 EMB--benign 07/14/08 insufficient tissue volume History of endoscopy 2015 endoscopy of stomach--GERD History of laparoscopic appendectomy 07/11/2020 History of laparoscopy 03/03/02 dx lscope, adhesiolysis History of ovarian cystectomy 1995 ovarian cyst removed History of tonsillectomy 1994 Family History Family History Father Family history of elevated blood lipids Hypertension Mother Patient's mother is in good health Sibling Patient's brother is in good health Social History Social History (Updated 07/23/22 @ 13:29 by James Gallego MA) Smoking packs per day: 0.25 Smoking cigarettes per day: 5.0 Years smoked: 3 Smoking pack-years: 0.75 Smoking status: Former smoker Second hand tobacco smoke exposure: No Smoking end date: 07/28/99 Alcohol intake: never Alcohol use details: rarely Substance use: never Substance use type: does not use Lack of Transportation: No Lack of Food: Never True Current Housing: I Have Housing Concerned About Future Housing: No Difficulty Paying Gas/Electric Bills: No Difficulty Paying for Meds: No Currently Unemployed: No Education: Bachelor's Degree Difficulty w/ Childcare or Family Care: No Living arrangements: with family Additional living arrangements comments: spouse Occupation/Education: unemployed Gender identity (if verbalized by the patient): Female Sexual Orientation (if Verbalized by the Patient): Straight or Heterosexual Spiritual care concerns: No Anes - Eval Final PreProcedure Day of Procedure 08/16/22 10:23 Patient weight: obese Heart: regular rate and rhythm Lungs: clear to auscultation Airway: Mallampati scale Neurological: alert and oriented Last oral intake: >/= 8 hours ASA classification: II Emergent: no Anesthetic plan: proceed Anesthesia type and monitoring: general GIVS and standard monitoring Results Review: All pre-operative results and documents have been reviewed as part of the pre-operativ
--- NOTE | 2022-08-16 10:23 | PM.HPGS ---
History of Present Illness History of Present Illness Consent: Risks, benefits, and alternatives have been discussed and questions answered. Patient agrees to proceed with procedure. Chief complaint: neoplasm screening Narrative: Teagan Oneill is a 47 year old female presents for screening colonoscopy. Patient's current weight appetite and bowel movements are normal. Patient denies abdominal pain. She has had no bleeding. Family history noncontributory. Review of Systems Review of Systems: Review of systems noncontributory. [facility] Past Medical History Medical History Abnormal Pap smear of cervix 08/07/10 ascus, neg hpv; 07/07/2009 ASCUS;06/21/08 LGSIL +HPV; 03/28/2006 ASCUS + HPV Anxiety BMI 31.0-31.9,adult Chlamydia Depression (Unknown) Encounter for IUD insertion 06/04/05 Mirena insertion Encounter for IUD removal 07/07/07 Mirena removal--irregular bleeding GERD (gastroesophageal reflux disease) HSV-1 (herpes simplex virus 1) infection Low serum vitamin B12 Migraine Other allergic rhinitis (Unknown) Screening mammogram, encounter for Surgical History Surgical History History of cholecystectomy 2010 History of colposcopy with cervical biopsy 05/06/06 EMB--benign 07/14/08 insufficient tissue volume History of endoscopy 2014 endoscopy of stomach--GERD History of laparoscopic appendectomy 07/11/2020 History of laparoscopy 03/03/02 dx lscope, adhesiolysis History of ovarian cystectomy 1995 ovarian cyst removed History of tonsillectomy 1994 Family History Family History Father Family history of elevated blood lipids Hypertension Mother Patient's mother is in good health Sibling Patient's brother is in good health Social History Social History (Updated 07/23/22 @ 13:29 by James Gallego MA) Smoking packs per day: 0.25 Smoking cigarettes per day: 5.0 Years smoked: 3 Smoking pack-years: 0.75 Smoking status: Former smoker Second hand tobacco smoke exposure: No Smoking end date: 07/28/99 Alcohol intake: never Alcohol use details: rarely Substance use: never Substance use type: does not use Lack of Transportation: No Lack of Food: Never True Current Housing: I Have Housing Concerned About Future Housing: No Difficulty Paying Gas/Electric Bills: No Difficulty Paying for Meds: No Currently Unemployed: No Education: Bachelor's Degree Difficulty w/ Childcare or Family Care: No Living arrangements: with family Additional living arrangements comments: spouse Occupation/Education: unemployed Gender identity (if verbalized by the patient): Female Sexual Orientation (if Verbalized by the Patient): Straight or Heterosexual Spiritual care concerns: No Meds Home Medications and Allergies Home Medications Medication Instructions Recorded Confirmed Type norethindrone acetate 1 mg-ethinyl 1 tablet PO DAILY #63 tabs 01/15/22 08/05/22 Rx estradiol 20 mcg tablet (Junel) citalopram 10 mg tablet (Celexa) 10 mg PO DAILY #90 tabs 05/09/22 08/05/22 Rx Allergies Allergy/AdvReac Type Severity Reaction Status Date / Time codeine Allergy Mild keeps me Verified 08/16/22 09:38 up Vital Signs Vital Signs - 24 hr 08/16/22 09:39 Temperature 97.2 F L Pulse Rate 68 Respiratory Rate 18 Blood Pressure 114/63 Pulse Oximetry 97 Oxygen Delivery Room Air Exam Narrative: Physical exam reveals patient be alert. Vital signs stable. HEENT exam unremarkable. Patient is anicteric. Lungs are clear to auscultation and percussion. Heart is without murmur or extra sounds. Abdomen bowel sounds present soft nontender with no organomegaly. Digital external rectal exam is normal. Assessment and Plan Assessment and plan (1) Encounter for screening colonoscopy: Code(s
[2022-08-16 10:46] VITALS: BP 90/53; PULSE 75; RESP 30; O2SAT 95
[2022-08-16 10:56] VITALS: BP 97/63; PULSE 76; RESP 17; O2SAT 98
[2022-08-16 11:06] VITALS: BP 114/74; PULSE 64; RESP 20; O2SAT 100
== END 2022-08-16 11:13 | disposition home or self-care (01) ==
PROVIDERS: PCP Internal Medicine; Visit Provider Internal Medicine Gastroenterology
PROC: 0DJD8ZZ Inspection of Lower Intestinal Tract, Via Natural or Artificial Opening Endoscopic (ICD-10-PCS; CPT 45378; principal; 2022-08-16 11:00)
DX: Z12.11 Encounter for screening for malignant neoplasm of colon (principal); F41.9 Anxiety disorder, unspecified; Z87.891 Personal history of nicotine dependence; E66.9 Obesity, unspecified; Z68.34 Body mass index [BMI] 34.0-34.9, adult
CPT/HCPCS: 45378; J2704; J7120

== ENCOUNTER 2023-07-28 10:55 | Emergency (ER) | payer OTHER, SELFPAY ==
[2023-07-28 11:11] VITALS: BP 124/82; PULSE 83; RESP 16; TEMP 37.4; O2SAT 97
--- NOTE | 2023-07-28 11:27 | ED.URI ---
HPI - URI/Sore Throat General Chief Complaint: Upper Respiratory Infection Stated Complaint: cough for 8 days Time Seen by Provider: 07/28/23 11:25 Source: patient and RN notes reviewed Mode of arrival: ambulatory Limitations: no limitations History of Present Illness HPI Narrative: 48-year-old female presents with concern for a day history of cough, sore throat, nasal congestion, headache. Reports taking [id number] medications without relief. MD elicited complaint: cough and sore throat Related Data Allergies Allergy/AdvReac Type Severity Reaction Status Date / Time codeine Allergy Mild keeps me Verified 07/28/23 11:09 up Review of Systems Review of Systems: CONSTITUTIONAL: Reports malaise, chills, sweats, or fever. EYES: Denies visual changes, redness, or discharge. ENT: Reports rhinorrhea, congestion, and sore throat. CARDIOVASCULAR: Denies chest pain, palpitations, or edema. RESPIRATORY: Reports cough. Denies dyspnea. GASTROINTESTINAL: Denies abdominal pain, nausea, vomiting, diarrhea SKIN: Denies rash or itching. MUSCULOSKELETAL: Denies myalgia. NEUROLOGIC: Reports headache. All systems reviewed & are unremarkable except as noted in HPI and below PMFSH Past Medical History Medical History (Updated 07/28/23 @ 11:34 by Luly Villegas NP) Abnormal Pap smear of cervix 08/07/10 ascus, neg hpv; 07/07/2009 ASCUS;06/21/08 LGSIL +HPV; 03/28/2006 ASCUS + HPV Anxiety BMI 31.0-31.9,adult Chlamydia Depression (Unknown) Encounter for IUD insertion 06/04/05 Mirena insertion Encounter for IUD removal 07/07/07 Mirena removal--irregular bleeding Encounter for screening colonoscopy GERD (gastroesophageal reflux disease) HSV-1 (herpes simplex virus 1) infection Low serum vitamin B12 Migraine Other allergic rhinitis (Unknown) Screening mammogram, encounter for Surgical History Surgical History History of cholecystectomy 2010 History of colposcopy with cervical biopsy 05/06/06 EMB--benign 07/14/08 insufficient tissue volume History of endoscopy 2014 endoscopy of stomach--GERD History of laparoscopic appendectomy 07/11/2020 History of laparoscopy 03/03/02 dx lscope, adhesiolysis History of ovarian cystectomy 1995 ovarian cyst removed History of tonsillectomy 1994 Family History Family History Father Family history of elevated blood lipids Hypertension Mother Patient's mother is in good health Sibling Patient's brother is in good health Social History Social History (Updated 10/16/22 @ 10:45 by Tiff Beaver MA) Smoking packs per day: 0.25 Smoking cigarettes per day: 5.0 Years smoked: 3 Smoking pack-years: 0.75 Smoking status: Former smoker Second hand tobacco smoke exposure: No Smoking end date: 07/28/99 Alcohol intake: never Alcohol use details: rarely Substance use: never Substance use type: does not use Lack of Transportation: No Lack of Food: Never True Current Housing: I Have Housing Concerned About Future Housing: No Difficulty Paying Gas/Electric Bills: No Difficulty Paying for Meds: No Currently Unemployed: No Education: Bachelor's Degree Difficulty w/ Childcare or Family Care: No Living arrangements: with family Additional living arrangements comments: spouse Occupation/Education: occupation 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 There is no relevant family history pertinent to the presenting complaint Exam Narrative: GENERAL: Well-appearing, well-nourished, and in no acute distress. HEAD: Normocephalic EYES: PERRLA, conju
== END 2023-07-28 11:38 | disposition home or self-care (01) ==
PROVIDERS: Emergency Provider Nurse Practitioner; PCP Internal Medicine
DX: J06.9 Acute upper respiratory infection, unspecified (principal); Z87.891 Personal history of nicotine dependence; G21.9 Secondary parkinsonism, unspecified; F41.9 Anxiety disorder, unspecified
CPT/HCPCS: 99213; G0463

== ENCOUNTER → 2023-09-09 15:01 | Outpatient (CLI) | payer OTHER, SELFPAY ==
--- NOTE | ~2023-09-09 | MM_ITS ---
EXAMINATION: MM screening [facility] BI w dottie HISTORY: Screening mammogram TECHNIQUE: Craniocaudal and mediolateral oblique 3-D tomosynthesis images were obtained and synthetic 2-D images were generated. CAD analysis was submitted and interpreted. COMPARISON: 05/29/2022, 02/12/2021, 07/01/2018 BREAST PARENCHYMAL COMPOSITION: The breasts are heterogeneously dense, which may obscure small masses . FINDINGS: No suspicious mass, calcification, or architectural distortion are identified in either irma ast to suggest malignancy. There has been no suspicious interval change. IMPRESSION: 1. No mammographic evidence of malignancy. 2. Recommend routine screening mammography in one year. BI-RADS Category 1: Negative Reviewed, dictated and finalized at location A. [employer] [employer]
== END ==
PROVIDERS: PCP Obstetrics & Gynecology; Visit Provider Obstetrics & Gynecology
DX: Z12.31 Encounter for screening mammogram for malignant neoplasm of breast (principal)
CPT/HCPCS: 77063; 77067

== ENCOUNTER 2024-07-25 13:22 | Emergency (ER) | payer OTHER, SELFPAY ==
[2024-07-25 13:37] VITALS: BP 113/73; PULSE 85; RESP 16; TEMP 37.5; O2SAT 98
[2024-07-25 13:49] LABS: EDSTREPNEGPOS1 Negative (Negative)
--- NOTE | 2024-07-25 13:49 | ED_ITS ---
HPI - Skin/Abscess/Foreign Bdy General Chief complaint: Skin/Abscess/Foreign Body Stated complaint: Fever/Rash Time Seen by Provider: 07/25/24 13:39 Source: patient and RN notes reviewed Mode of arrival: ambulatory Limitations: no limitations History of Present Illness HPI narrative: Patient presents today with a 3 day history of a fatigue, fever up to 100.5, body aches. Two day history of widespread rash with nausea and vomiting. States she is unable to keep down any food but has been able to keep down some fluids this morning. Reports very minor itching but describes it as a tightness and burning. Denies shortness of breath, sore throat, nasal congestion. She has been taking Tylenol at home for symptoms. She did a home COVID and influenza swab this morning that was negative. Related Data Home Medications ?Medication ?Instructions ?Recorded ?Confirmed ?Last Taken ?Type carbamazepine 100 mg 100 mg PO Q12H 07/25/24 07/25/24 Unknown History tablet,extended release,12 hr Allergies Allergy/AdvReac Type Severity Reaction Status Date / Time codeine Allergy Mild keeps me Verified 07/25/24 13:31 up Review of Systems Review of Systems: CONSTITUTIONAL: Denies chills, or sweats.+ body aches, fever, fatigue EYES: Denies visual changes, redness, or discharge. ENT: Denies rhinorrhea, congestion, sore throat, or otalgia. CARDIOVASCULAR: Denies chest pain, palpitations, or edema. RESPIRATORY: Denies cough or dyspnea. GASTROINTESTINAL: Denies abdominal pain, or diarrhea.+ nausea and vomiting GENITOURINARY: Denies dysuria or hematuria. SKIN: + rash. MUSCULOSKELETAL: Denies back pain, joint pain, or myalgia. NEUROLOGIC: Denies headache, numbness, tingling, or weakness. PSYCH: Denies depression or anxiety. [facility], [facility] Past Medical History Medical History Encounter for screening colonoscopy Screening mammogram, encounter for Encounter for IUD insertion 06/04/05 Mirena insertion Encounter for IUD removal 07/07/07 Mirena removal--irregular bleeding GERD (gastroesophageal reflux disease) HSV-1 (herpes simplex virus 1) infection Migraine Chlamydia Anxiety Abnormal Pap smear of cervix 08/07/10 ascus, neg hpv; 07/07/2009 ASCUS;06/21/08 LGSIL +HPV; 03/28/2006 ASCUS + HPV Depression (Unknown) Low serum vitamin B12 Other allergic rhinitis (Unknown) BMI 31.0-31.9,adult Surgical History Surgical History History of laparoscopy 03/03/02 dx lscope, adhesiolysis History of colposcopy with cervical biopsy 05/06/06 EMB--benign 07/14/08 insufficient tissue volume History of tonsillectomy 1994 History of cholecystectomy 2010 History of ovarian cystectomy 1995 ovarian cyst removed History of endoscopy 2014 endoscopy of stomach--GERD History of laparoscopic appendectomy 07/11/2020 Family History Family History Father Family history of elevated blood lipids Hypertension Mother Patient's mother is in good health Sibling Patient's brother is in good health Social History Social History Smoking packs per day: 0.25 Smoking cigarettes per day: 5.0 Years smoked: 3 Smoking pack-years: 0.75 Smoking status: Former smoker Second hand tobacco smoke exposure: No Smoking end date: 07/28/99 Alcohol intake: never Alcohol use details: rarely Substance use: never Substance use type: does not use Do You Feel Safe in your Home?: Yes Lack of Transportation: No Lack of Food: Never True Current Housing: I Have Housing Concerned About Future Housing: No Difficulty Paying Gas/Electric Bills: No Difficulty Paying for Meds: No Currently Unemployed: No Education: Bachelor's Degree Difficulty w/ Childcare or Family Care: No Living arrangements: with family Additional living arrangements comments: spouse Occupation/Education: occupation 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 Please see nursing chart for further information. There is no relevant family history pertinent to the presenting complaint Exam Narrative: GENERAL: Well-appearing, well-nourished, and in no acute distress. HEAD: Normocephalic, atraumatic. EYES: EOMI. No redness or drainage. Conjunctivae normal. ENT: Mucous membranes pink and moist. Nares clear. No rhinorrhea. TMs normal bilaterally. Throat normal. Uvula midline. NECK: Normal AROM. Supple. No lymphadenopathy. CHEST: No respiratory distress. Clear to auscultation. HEART: Regular rate and rhythm. No murmur appreciated. EXTREMITIES: Normal range of motion. No edema. SKIN: Warm, dry. Capillary refill normal. Normal skin turgor. Widespread erythematous blanchable macular rash over the upper back, chest, bilateral arms and legs. The abdomen and lower back are mottled. NEURO: No focal deficits. Alert and oriented x3. Gait steady. PSYCH: Normal affect. No signs of depression or anxiety. Course Course Level of Care: Express Care Visit Vital Signs Vital signs: Vital Signs Temperature 99.5 F 07/25/24 13:37 Pulse Rate 85 07/25/24 13:37 Respiratory Rate 16 07/25/24 13:37 Blood Pressure 113/73 07/25/24 13:37 Pulse Oximetry 98 07/25/24 13:37 Temperature 99.5 F 07/25/24 13:37 Pulse Rate 85 07/25/24 13:37 Respiratory Rate 16 07/25/24 13:37 Blood Pressure 113/73 07/25/24 13:37 Pulse Oximetry 98 07/25/24 13:37 Reviewed MDM - Skin/Abscess/Foreign Bdy MDM Narrative Medical decision making narrative: Rapid strep negative. Etiology of the rash is unclear. Due to the rash appearance and the mottling of the skin as well as the vomiting, recommend ER transfer for further evaluation. Patient declines at this time and states she will seek further treatment if symptoms worsen. Differential Diagnosis Differential diagnosis: Likely viral exanthem, urticaria, contact dermatitis and other (Viral syndrome) Lab Data Attestation: I reviewed the patient's lab results. Labs: Lab Results 07/25/24 Range/Units 13:37 POC Grp A Strep Screen Negative (Negative) Critical Care Time Critical Care Time Critical Care Time: No Discharge Plan Discharge Clinical Impression: Rash Patient Disposition: Home, Self-Care Condition: Stable Instructions: Dermatitis (ED) Additional Instructions: The cause of your rash is unknown. You have declined transfer to the ER today. Continue Tylenol or ibuprofen for pain or fever if needed. Follow-up with your PCP or proceed to the ER if symptoms worsen. Patient Language: Tristanian Prescriptions: New ondansetron 8 mg tablet,disintegrating 8 mg PO Q4-6H PRN (Reason: nausea and vomiting) Qty: 20 0RF No Action carbamazepine 100 mg tablet extended release 12 hr 100 mg PO Q12H citalopram [Celexa] 10 mg tablet 10 mg PO DAILY Qty: 90 0RF Follow-up/Referrals: PHYSICIAN,SHAFTING CLEANER [Primary Care Provider] - Time of Disposition: 14:02
== END 2024-07-25 14:07 | disposition home or self-care (01) ==
PROVIDERS: Emergency Provider Nurse Practitioner
DX: R21 Rash and other nonspecific skin eruption (principal); Z87.891 Personal history of nicotine dependence
CPT/HCPCS: 87081; 87880; 99213; G0463